=== PATIENT | female | born 1990 | race Caucasian/White ===

== ENCOUNTER 2017-07-11 07:15 | Emergency (ER) | payer OTHER ==
[~2017-07-11] VITALS: Ht 167.6 cm; Wt 90.3 kg
[2017-07-11 07:21] VITALS: Ht 167.6 cm; Wt 90.3 kg
[2017-07-11 08:40] VITALS: BP 128/74
== END 2017-07-11 08:41 | disposition home or self-care (01) ==
LOC: ED 07:15
DX: J06.9 Acute upper respiratory infection, unspecified (principal); Z88.8 Allergy status to other drugs, medicaments and biological substances

== ENCOUNTER → 2017-09-14 | Outpatient (CLI) | payer OTHER | END | disposition home or self-care (01) | LOC: US 13:24 | PROC: BW4GZZZ Ultrasonography of Pelvic Region (ICD-10-PCS; principal; 2017-09-14) | DX: N91.2 Amenorrhea, unspecified (principal); E28.2 Polycystic ovarian syndrome ==

== ENCOUNTER 2018-03-05 10:54 | Emergency (ER) | payer OTHER ==
[~2018-03-05] VITALS: Ht 167.6 cm; Wt 90.3 kg
[2018-03-05 11:01] VITALS: Ht 167.6 cm; Wt 90.3 kg
[2018-03-05 12:56] VITALS: BP 124/85
== END 2018-03-05 12:56 | disposition home or self-care (01) ==
LOC: ED 10:54
DX: S90.121A Contusion of right lesser toe(s) without damage to nail, initial encounter (principal); F17.210 Nicotine dependence, cigarettes, uncomplicated; Z88.6 Allergy status to analgesic agent; Z90.89 Acquired absence of other organs; W22.8XXA Striking against or struck by other objects, initial encounter; Y93.89 Activity, other specified; Y92.89 Other specified places as the place of occurrence of the external cause; Y99.8 Other external cause status
CPT/HCPCS: J1885

== ENCOUNTER → 2018-08-09 | Outpatient (CLI) | payer OTHER | END | disposition home or self-care (01) | LOC: CT 09:22 | PROC: BW281ZZ Computerized Tomography (CT Scan) of Head using Low Osmolar Contrast (ICD-10-PCS; principal; 2018-08-09) | DX: R42 Dizziness and giddiness (principal); R51 Headache | CPT/HCPCS: 36000; Q9967 ==

== ENCOUNTER 2019-05-21 08:15 | Emergency (ER) | payer OTHER ==
[~2019-05-21] VITALS: Ht 167.6 cm; Wt 70.8 kg
[2019-05-21 08:20] VITALS: Ht 167.6 cm; Wt 70.8 kg
[2019-05-21 10:15] LABS: BASOPHIL % 0.8 % (0-2); PLATELET COUNT 270 x10^3mcL (130-400); RED CELL DISTRIBUTION WIDTH 12.6 % (11.5-14.5)
[2019-05-21 10:24] LABS: CALCIUM 8.7 mg/dL (8.5-10.1); CARBON DIOXIDE 28.5 mmol/L (21-32); CHLORIDE SERUM 105 mmol/L (98-107); CREATININE SERUM 0.7 mg/dL (0.6-1.0); GFR1 > 60 mL/min; GLUCOSE SERUM 91 mg/dL (74-106); POTASSIUM SERUM 3.9 mmol/L (3.5-5.1); SODIUM SERUM 139 mmol/L (136-145)
[2019-05-21 10:29] LABS: ALBUMIN 3.8 g/dL (3.4-5.0); ALKALINE PHOSPHATASE 44 U/L (46-116); ALT/SGPT 19 U/L (14-59); AST/SGOT 10 U/L (15-37); BILIRUBIN TOTAL 0.4 mg/dL (0.20-1.00); CHOLESTEROL 181 mg/dL (<200); CHOLESTEROL/HDL RATIO 3.9; HDL CHOLESTEROL 46 mg/dL (40-60); LIPASE 143 IU/L (73-393)
[2019-05-21 10:31] LABS: FREE T4 0.88 ng/dL (0.76-1.46); FREE THYROXINE INDEX 2.5 ug/dL (1.4-4.5)
[2019-05-21 10:32] LABS: TRIGLYCERIDES 212 mg/dL (<150)
[2019-05-21 10:37] LABS: T3 TOTAL 1.1 ng/mL
[2019-05-21 11:43] VITALS: BP 110/59
== END 2019-05-21 11:43 | disposition home or self-care (01) ==
LOC: ED 08:15
PROVIDERS: Specialist
DX: R07.89 Other chest pain (principal); N64.4 Mastodynia; Z90.89 Acquired absence of other organs; Z88.8 Allergy status to other drugs, medicaments and biological substances
CPT/HCPCS: 36415; 83880; 84439; J1885; Q0092